=== PATIENT | female | born 1935 | race Caucasian/White ===

== ENCOUNTER → 2016-11-23 | Outpatient (CLI) | payer MEDICARE, MEDICAID ==
[~2016-11-23] MED LIST: AMOXICILLIN875 MG PO; ASPIR 8181 MG PO; CALCIUM 600 +1 EA12 PO; CALTRATE 600 +1 EAC1 PO; CLARITIN D 24HR1 TAB PO; FISH OIL + VIT1 EACH PO; GLUCOPHAGE500 MG PO; PEPTO BISMOL LIQ1 ML PO; PRILOSEC20 MG PO; TYLENOL325 MG PO; VITAMIN B-1000 MCG/M SUB-Q; VITAMIN C500 M1 PO; VITAMIN D1000 UNIT PO; VITAMIN E400 UNI1 PO; [UNRECOGNIZED DRUG - OTHER] PO
== END | disposition disaster alternative care site (69) ==
LOC: GPOC 11-20 15:00 → GRAD 13:47 → GPOC 14:00 → GRAD 14:00 → GPOC 15:00 → GOPD 11-24 13:00
PROC: 0T25X0Z Change Drainage Device in Kidney, External Approach (ICD-10-PCS; principal; 2016-11-23)
DX: Z46.82 Encounter for fitting and adjustment of non-vascular catheter (principal)
CPT/HCPCS: C1729; C1769

== ENCOUNTER → 2017-01-21 | Outpatient (CLI) | payer MEDICARE, MEDICAID | END | disposition disaster alternative care site (69) | LOC: GOPD 01-14 10:30 | PROC: 0T25X0Z Change Drainage Device in Kidney, External Approach (ICD-10-PCS; principal; 2017-01-21) | DX: Z43.6 Encounter for attention to other artificial openings of urinary tract (principal) | CPT/HCPCS: C1729; C1769; J7030 ==

== ENCOUNTER → 2017-03-12 | Outpatient (CLI) | payer MEDICARE, MEDICAID | END | disposition disaster alternative care site (69) | LOC: GOPD | PROC: 0T25X0Z Change Drainage Device in Kidney, External Approach (ICD-10-PCS; principal; 2017-03-12) | DX: Z46.82 Encounter for fitting and adjustment of non-vascular catheter (principal); N28.9 Disorder of kidney and ureter, unspecified; N13.30 Unspecified hydronephrosis; N13.5 Crossing vessel and stricture of ureter without hydronephrosis | CPT/HCPCS: C1729; C1769; J1644 ==

== ENCOUNTER → 2017-04-22 | Outpatient (CLI) | payer MEDICARE, MEDICAID | END | disposition disaster alternative care site (69) | LOC: GOPD 04-15 → GRAD 14:55 → GOPD 15:00 | PROC: 0T25X0Z Change Drainage Device in Kidney, External Approach (ICD-10-PCS; principal; 2017-04-22) | DX: Z46.82 Encounter for fitting and adjustment of non-vascular catheter (principal) | CPT/HCPCS: J7030 ==